=== PATIENT | female | born 2000 | race Caucasian/White ===

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

== ENCOUNTER 2021-01-20 16:02 | Emergency (ER) | payer MEDICAID, SELFPAY ==
[2021-01-20 16:03] VITALS: BP 124/83; PULSE 65; RESP 18; TEMP 36; O2SAT 97; BMI 37.3
--- NOTE | 2021-01-20 16:19 | RAD_ITS ---
STUDY: X-RAY CHEST REASON FOR EXAM: Female, 20 years old. chest pain TECHNIQUE: AP COMPARISON: None. FINDINGS: The lungs are clear and expanded. There is no demonstrated pleural abnormality. Normal size heart. Normal mediastinum and keith. Normal visualized pulmonary arteries. Normal visualized aortic arch and descending thoracic aorta. Normal visualized thoracic spine. Normal visualized ribs, clavicles, and shoulders. There is no demonstrated abnormality of the visualized soft tissue structures of the upper abdomen. RAD/Chest 1 View (Portable) IMPRESSION: Nonacute portable x-ray examination of the chest. Electronically Signed: Gilberto Patterson MD ([place]) at 16:39 EDT , Service support ,
--- NOTE | 2021-01-20 16:23 | ED.VIS.CHEST ---
HPI History of Present Illness Chief Complaint: Chest Other Informant: patient Narrative Narrative: 20-year-old patient presenting to the emergency room with bilateral rib pain. Patient states that they have gender dysphoria and has been using a very tight binder on their chest. Saturday she started having pain in the bilateral ribs and switched to a less constrictive binder. They states that they have went to her doctor and has been taking some anti-inflammatories but the pain seems to be getting worse. The patient rep[orts to me that they advised if the patient develops nausea or difficulty breathing to come to the emergency room. This morning the patient states that they felt slightly nauseous and felt that the breathing was harder. The patient denies fever cough or rash. PFSH PFS Medical History (Updated 01/20/21 @ 16:[address] Mason Shen DO) Anxiety Depression Medical History no medical history no medical history Home Medications NK 09/29/19 [History Last Taken Unknown] hydrocodone-acetaminophen 1 tab PO Q6H PRN PRN 3 Days #12 tablet 01/20/21 [Rx Last Taken Unknown] Allergy/AdvReac Type Severity Reaction Status Date / Time Penicillins AdvReac Hives Verified 01/20/21 16:03 Surgical History Hx of appendectomy Social History (Updated 01/20/21 @ 16:[address] Mason Shen DO) Smoking Status: Never smoker substance use type: does not use ROS ROS ED Constitutional Constitutional ED: Denies chills or weight loss Eyes Eyes: Denies change in vision or diplopia ENT ENT ED: Denies ear pain, rhinorrhea or sore throat Cardiovascular Cardiovascular: Reports chest pain; Denies orthopnea, palpitations or racing heartbeat Respiratory/Chest Respiratory/Chest: Reports dyspnea; Denies cough or orthopnea Gastrointestinal Gastrointestinal: Reports nausea; Denies abdominal pain, diarrhea or vomiting Genitourinary Genitourinary ED: Denies dysuria, hematuria or urinary frequency Musculoskeletal Musculoskeletal: Denies arthralgias or myalgias Integumentary Denies abscess or rash Neurologic Neurologic: Denies headache(s) or weakness Psychiatric Psychiatric: Denies anxiety, depression, suicidal ideation or suicidal thoughts Endocrine Endocrinology: Denies polydipsia, polyphagia or polyuria Allergic/Immunologic Allergic/Immunologic ED: Denies mouth swelling, tongue swelling or urticaria EXAM Physical Exam Const Vital Signs: 01/20/21 16:03 01/20/21 16:31 Temperature 96.8 F L Temperature Source Temporal Pulse Rate 65 Respiratory Rate 18 Respiratory Effort Normal Respiratory Pattern Normal Blood Pressure 124/83 H Blood Pressure Mean 96 Pulse Ox 97 Positive well nourished and well developed General Appearance ED: well developed HEENT Reports normocephalic, head/scalp atraumatic and moist mucous membranes Eyes PERRL and EOMs intact bilaterally Neck no lymphadenopathy, supple and no JVD Chest Wall Chest Narrative: Tender to palpation over the bilateral ribs right greater than left Resp normal respiratory effort and clear to auscultation bilaterally Cardio regular rate, regular rhythm and no murmurs GI normal to inspection, nondistended, normoactive bowel sounds and non-tender Palpation: soft Back/Spine no CVA tenderness and normal ROM Extremity normal to inspection General Extremety ED: Negative for edema General Extremity: Negative for edema Neuro oriented x3 and CN's II-XII intact bilaterally Sensorium / Orientation: alert Motor Exam: strength 5/5 throughout Psych mental status grossly normal Mood & Affect: Negative for depressed or tearful Skin no rashes or lesions noted and no wounds MDM MDM MDM Narrative Medical decision making narrative: Patient received 2 Switchback for pain while here. My interpretation of the single view chest x-ray is no acute process. Specifically no infiltrate or obvious rib fracture seen. The patient is PERC negative. the patient's nausea could be the anti-inflammatory that they has been taking. I can prescribe a few Switchback to have at home. Would recommend against binding until they recover. Discharge Plan Triage Chief Complaint: Chest Other ED Provider: Mason Shen Dx/Rx/DC Orders Clinical Impression: Acute chest wall pain Instructions: ED Strain Chest Wall Prescriptions: New hydrocodone-acetaminophen [hydrocodone-acetaminophen] 1 TABLET tablet 1 tab PO Q6H PRN PRN (Reason: Pain) 3 Days Qty: 12 RF: 0 No Action NK RF: 0 Primary Care Provider: Noreen Bishop NP Referrals: Noreen Bishop NP, FAMILY LITERACY COORDINATOR-C [Primary Care Provider] - 3-5 Days if not improving Disposition Disposition: Home, Self Care
[2021-01-20] MEDS: HYDROcodone Bitartrate/Apap 5/325 Tablet PO (16:29)
== END 2021-01-20 16:54 | disposition home or self-care (01) ==
LOC: ED 16:41
PROVIDERS: Emergency Provider Emergency Medicine; PCP Nurse Practitioner
DX: R07.89 Other chest pain (principal)
CPT/HCPCS: 71045; 99283

== ENCOUNTER 2021-07-02 17:55 | Emergency (ER) | payer MEDICAID, SELFPAY ==
[2021-07-02 17:56] VITALS: BP 119/83; PULSE 75; RESP 24; TEMP 36.3; O2SAT 97; O2SAT 98; BMI 37.5
--- NOTE | 2021-07-02 18:07 | EKG12_ITS ---
Test Reason : CP Blood Pressure : / mmHG Vent. Rate : 081 BPM Atrial Rate : 081 BPM P-R Int : 168 ms QRS Dur : 082 ms QT Int : 380 ms P-R-T Axes : 049 014 010 degrees QTc Int : 441 ms Normal sinus rhythm Normal ECG Confirmed by MARCELO VELEZ, EDYTA ([id number]), editorial director JOSE GARCÍA ([id number]) on 07/06/2021 9:25:14 AM Referred By: ANA CRISTINA Confirmed By:EDYTA ROBERTSON MD
--- NOTE | 2021-07-02 18:49 | ED.VIS.GI ---
HPI HPI - GI History of Present Illness Chief Complaint: Chest Pain Narrative Narrative: 21-year-old female presenting with nausea/vomiting which started about 0 900 this morning. Patient states that her last meal was chicken nuggets last evening. Patient states that she did not have any vomiting until she woke up. Patient states it does radiate from her epigastrium upward. She denies a history of acid reflux. She is not had fever or chills. She denies diarrhea. She denies any sick contacts. PFSH PFSH Medical History Anxiety Depression Home Medications hydrocodone-acetaminophen 1 tab PO Q6H PRN PRN 3 Days #12 tablet 01/20/21 [Rx Last Taken Unknown] ondansetron 4 mg PO Q8H PRN #10 tab 07/02/21 [Rx Last Taken Unknown] Allergy/AdvReac Type Severity Reaction Status Date / Time Penicillins AdvReac Hives Verified 01/20/21 16:03 Surgical History Hx of appendectomy Social History Smoking Status: Never smoker substance use type: does not use ROS ROS ED Constitutional Constitutional ED: Denies fever(s) or sweats ENT ENT ED: Denies rhinorrhea or sore throat Cardiovascular Cardiovascular: Denies chest pain Respiratory/Chest Respiratory/Chest: Denies cough or dyspnea Gastrointestinal Gastrointestinal: Reports abdominal pain, nausea and vomiting; Denies diarrhea Genitourinary Genitourinary ED: Denies dysuria or hematuria Musculoskeletal Musculoskeletal: Denies arthralgias, back pain, myalgias or neck pain Integumentary Denies rash Neurologic Neurologic: Denies headache(s) or weakness Psychiatric Psychiatric: Reports anxiety; Denies depression EXAM Physical Exam Const Vital Signs: 07/02/21 17:56 07/02/21 20:07 07/02/21 21:02 Temperature 97.3 F L Temperature Source Temporal Pulse Rate 75 88 92 Respiratory Rate 24 H 18 Blood Pressure 119/83 H 110/81 H 103/49 L Blood Pressure Mean 95 90 Pulse Ox 98 99 99 Oxygen Delivery Method Room Air Room Air Positive well nourished General Appearance ED: NAD; Negative for pallor HEENT Reports moist mucous membranes normocephalic and atraumatic Eyes PERRL General Eye ED: Negative for pale conjunctiva or scleral icterus Resp normal respiratory effort and clear to auscultation bilaterally Cardio regular rate and regular rhythm GI Palpation: soft and tender epigastric; Negative for guarding, rigid or rebound tenderness present Neuro CN's II-XII intact bilaterally Sensorium / Orientation: alert, oriented to person, oriented to place and oriented to time Psych mental status grossly normal and thought process normal Skin General Skin Exam: Negative for jaundice or pallor MDM MDM MDM Narrative Medical decision making narrative: Patient's initial reported symptom was chest pain however when I asked her to point to where her chest pain is she points to her epigastrium. She reports that she had nausea and vomiting since 9 AM this morning. She does not have anything for nausea at home. She does not have any sick contacts or viral symptoms. She denies any abdominal trauma. She does not have shortness of breath but states she is feeling a little bit anxious. She has a history of anxiety. Patient will be given Zofran and a GI cocktail to see if this helps her symptoms. Patient symptoms are not improved significantly. Patient was given morphine for pain and lab work was obtained. Patient was given 500 cc normal saline. CBC shows slight leukocytosis at 13.0 but this is likely due to demargination. CMP within normal limits. Lipase negative. Serum hCG negative. On reevaluation patient feels improved her vomiting has because she initially reported chest pain there was a protocol EKG performed which on my interpretation was a normal sinus rhythm with a ventricular rate of 81 bpm without sign of ischemic change or dysrhythmia. I do not believe she needs a cardiac work-up based on the location of her pain. Since she is feeling better I will discharge her home with Zofran. She is given return precautions. Impression: 1. Epigastric pain 2. Nausea/vomiting Lab Data Labs: Laboratory Results - last 24 hr 07/02/21 07/02/21 07/02/21 18:23 18:23 18:23 WBC 13.0 H RBC 5.10 Hgb 15.3 H Hct 43.3 MCV 84.9 MCH 30.0 MCHC 35.3 RDW Std Deviation 38.0 RDW Coeff of Malik 12.3 Plt Count 280 MPV 11.8 Immature Gran % (Auto) 0.400 Neut % (Auto) 89.9 H Lymph % (Auto) 4.3 L [place] % (Auto) 5.0 Eos % (Auto) 0.2 Baso % (Auto) 0.2 Absolute Neuts (auto) 11.7 H Absolute Lymphs (auto) 0.56 L Nucleated RBC % 0 Differential Comment SCANNED Sodium 138 Potassium 3.7 Chloride 107 Carbon Dioxide 22.0 Anion Gap 9 BUN 10 Creatinine 0.96 Estim Creat Clear Calc 84.11 Est GFR (MDRD) Af Amer 95 Est GFR (MDRD) Non-Af 79 BUN/Creatinine Ratio 10.4 Glucose 118 H Calcium 9.2 Total Bilirubin 0.80 AST 21 ALT 50 Alkaline Phosphatase 79 Total Protein 8.4 H Albumin 4.1 Globulin 4.3 H Albumin/Globulin Ratio 1.0 Lipase 74 Serum , Qual NEGATIVE Discharge Plan Triage Chief Complaint: Chest Pain ED Provider: Kannan Vann Dx/Rx/DC Orders Instructions: ED Gastroenteritis, Viral (Adult), ED Epigastric Pain Uncertain Cause Prescriptions: New ondansetron 4 mg tablet,disintegrating 4 mg PO Q8H PRN (Reason: nausea and vomiting) Qty: 10 RF: 0 No Action hydrocodone-acetaminophen [hydrocodone-acetaminophen] 1 TABLET tablet 1 tab PO Q6H PRN PRN (Reason: Pain) 3 Days Qty: 12 RF: 0 Primary Care Provider: Noreen Bishop NP Referrals: Noreen Bishop NP, [employer] [Primary Care Provider] - Disposition Disposition: Home, Self Care
[2021-07-02] MEDS: Ondansetron ODT 4 MG Tablet PO (19:06)
[2021-07-02] MEDS: Mag Hydrox/Al Hydrox/Simeth 30 ML UDC PO (19:06)
[2021-07-02] MEDS: Morphine 4 MG/ML Syringe IV (20:04)
[2021-07-02 20:06] LABS: Absolute Lymphocyte Count 0.56 X10^3/uL (0.83-4.51); Absolute Neutrophil Count 11.7 X10^3/uL (2.0-7.7); Basophil# 0.03 X10^3/uL; Basophil% 0.2 % (0-1); Eosinophil# 0.03 X10^3/uL; Eosinophils% 0.2 % (0-5); Hematocrit 43.3 % (37-47); Hemoglobin 15.3 g/dL (12.0-15.0); Lymphocyte # 0.56 X10^3/ul (0.83-4.51); Lymphocyte % 4.3 % (19-41); Mean Corp Hgb Conc 35.3 g/dL (32-36); Mean Corpuscular Volume 84.9 fL (81-99); Mean Platelet Vol. 11.8 fl (6.2-12.0); Monocyte# 0.65 X10^3/uL; NRBC Flagged by Analyzer 0 % (0-5); Neutrophil % 89.9 % (47-70); POSITIVE DIFFERENTIAL YES; Platelet Count 280 K/mm3 (150-450); RBC Distribution Width CV 12.3 % (11.6-14.6)
[2021-07-02 20:07] VITALS: BP 110/81; PULSE 88; RESP 18; O2SAT 99
[2021-07-02 20:09] LABS: Differential Indicated SCAN CRITERIA MET
[2021-07-02] MEDS: Ondansetron 4 MG/2 ML Vial IV (20:11)
[2021-07-02 20:18] LABS: Internal QC Validated? YES +Cl - CLEAR BKGD; Pregnancy, Serum, hCG Quali. NEGATIVE Negative
[2021-07-02 20:24] LABS: AST(SGOT) 21 U/L (15-37); Alanine Aminotransfer ALT/SGPT 50 U/L (13-56); Albumin, Serum 4.1 g/dL (3.2-5.0); Alkaline Phosphatase 79 U/L (45-117); Anion Gap 9 (5-15); BUN 10 mg/dL (7-18); BUN/Creat Ratio 10.4 RATIO (10-20); Calcium,Total 9.2 mg/dL (8.5-10.1); Chloride 107 mmol/L (98-107); Creatinine, Serum 0.96 mg/dL (0.55-1.02); EST Glomerular Filtration Rate 79 mL/min (>60); Est Glom Filt Rate - Afr Amer 95 mL/min (>60); Estimated Creatinine Clearance 84.11 ml/min; Globulin 4.3 g/dL (2.2-4.2); Glucose 118 mg/dL (74-106); Lipase 74 U/L (73-393); Potassium 3.7 mmol/L (3.5-5.1); Protein, Total 8.4 g/dL (6.4-8.2); Sodium Level 138 mmol/L (136-145)
[2021-07-02 21:02] VITALS: BP 103/49; PULSE 92; O2SAT 99
[2021-07-02 21:04] LABS: Differential Comment SCANNED
== END 2021-07-02 21:31 | disposition home or self-care (01) ==
PROVIDERS: Emergency Provider Student in an Organized Health Care Education/Training Program; PCP Nurse Practitioner; Visit Provider Student in an Organized Health Care Education/Training Program
DX: R10.13 Epigastric pain (principal); R11.2 Nausea with vomiting, unspecified
CPT/HCPCS: 80053; 83690; 84703; 85025; 93005; 96374; 96375; 99285; J2405

== ENCOUNTER 2024-03-03 21:51 | Emergency (ER) | payer MEDICAID, SELFPAY ==
[2024-03-03 21:52] VITALS: BP 122/64; PULSE 72; RESP 19; TEMP 36.4; O2SAT 98; BMI 33.3
--- NOTE | 2024-03-03 23:29 | EDS_ITS ---
HPI HPI - Female History of Present Illness Chief Complaint: Complaint Informant: patient Bleeding Issue: Negative for Vaginal bleeding Associated Symptoms Associated Symptoms: Positive for Dysuria, Frequency and Urgency Last known menstrual period: Last 2 weeks. Sexually: Positive for Inactive Narrative Narrative: 23-year-old female past medical history of anemia. Prior appendectomy and C- section. States she has had dysuria for 1 to 2 weeks. Now having urinary urgency and loose stools and fecal urgency. Denies any back pain. No leg weakness or numbness. No prior back surgery. Prior similar symptoms: Yes Recent Illness/Hospitalization: No PFSH PFSH Medical History Depression Anxiety Home Medications ?Medication ?Instructions ?Recorded ?Last Taken ?Type hydrocodone-acetaminophen 5-325mg 1 tab PO Q6H PRN PRN Pain 3 days 01/20/21 Unknown Rx 5mg-325mg #12 TABLETS ondansetron 4 mg disintegrating 4 mg PO Q8H PRN nausea and 07/02/21 Unknown Rx tablet vomiting #10 tabs Surgical History Hx of appendectomy Social History Smoking Status: Never smoker substance use type: does not use ROS ROS ED ROS Narrative Dysuria. Urinary frequency. Constitutional Constitutional ED: Denies chills or fever(s) Eyes Eyes: Denies blurry vision ENT ENT ED: Denies ear pain Cardiovascular Cardiovascular: Denies chest pain Respiratory/Chest Respiratory/Chest: Denies cough or dyspnea Gastrointestinal Gastrointestinal: Reports diarrhea; Denies abdominal pain, constipation, melena, nausea or vomiting Genitourinary Genitourinary ED: Reports dysuria and urinary frequency Musculoskeletal Musculoskeletal: Denies arthralgias Integumentary Denies abscess Neurologic Neurologic: Denies headache(s) Psychiatric Psychiatric: Denies anxiety Endocrine Endocrinology: Denies heat intolerance Hematologic/Lymphatic Hematologic/Lymphatic: Denies easy bleeding Allergic/Immunologic Allergic/Immunologic ED: Denies mouth swelling EXAM Physical Exam Narrative Exam Narrative: Well-appearing 23-year-old female. Vital signs stable afebrile. Other female present in the room with her. No distress. H EENT exam unremarkable. Moist mucous membranes. Lungs clear to auscultation bilaterally. Heart regular rate and rhythm rate about 70 no murmur. Chest wall ribs nontender. Abdomen soft nontender. Nondistended. Normal bowel sounds no peritoneal signs. Back nontender. Moving all 4 extremities. 5/5 territory representative strength. Dorsi plantarflexion intact. No cauda equina. No saddle anesthesia. Normal flexion extension. Able to lift either leg off the bed. Neurologic exam normal. Awake alert. No focal motor or sensory deficits. Const Vital Signs: 03/03/24 21:52 Temperature 97.6 F L Temperature Source Temporal Pulse Rate 72 Respiratory Rate 19 H Blood Pressure 122/64 H Blood Pressure Mean 83 Pulse Ox 98 Oxygen Delivery Method Room Air Positive well nourished and well developed; Negative for cachectic, contractures or unkempt General Appearance ED: well developed and NAD; Negative for unkempt, cachectic, contractures or pallor Nutritional Appearance: Negative for cachectic HEENT Reports moist mucous membranes Negative for trauma or tenderness Eyes PERRL and EOMs intact bilaterally General Eye ED: Negative for pale conjunctiva or scleral icterus Neck no lymphadenopathy, supple and no JVD Thyroid: Negative for tender Lymph Lymphatic: Negative for other Chest Wall inspection of chest normal and palpation of chest normal Resp normal respiratory effort and clear to auscultation bilaterally Effort and Inspection: Negative for pain with movement Auscultation: Negative for rales, rhonchi, wheezes or diminished lung sounds Cardio regular rate, regular rhythm, S1 normal heart sound, no murmurs and no JVD Rate: Negative for bradycardia or tachycardic Rhythm: Negative for abnormal rhythm GI normal to inspection, nondistended, normoactive bowel sounds, soft to palpation, non-tender, non-distended and no masses Auscultation: normoactive bowel sounds Palpation: Negative for tender, guarding, rigid or mass Back/Spine no CVA tenderness General Back: Negative for CVA tenderness Cervical Spine: Negative for cervical spine tenderness Thoracic Spine / Upper Back: Negative for thoracic spinal tenderness Lumbar Spine / Lower Back: Negative for lumbar spinal tenderness Sacrum: Negative for other Extremity normal to inspection and full ROM General Extremety ED: Negative for edema or tenderness General Extremity: Negative for edema Neuro oriented x3 and CN's II-XII intact bilaterally Sensorium / Orientation: alert, oriented to person, oriented to place and oriented to time; Negative for confused, lethargic or stuporous Motor Exam: strength 5/5 throughout Psych mental status grossly normal Appearance: Negative for unkempt Attitude: No agitated Speech: No other Mood & Affect: Negative for depressed, anxious or tearful Skin no rashes or lesions noted and no wounds General Skin Exam: Negative for jaundice or pallor Rashes: No rashes noted Trauma: Negative for other MDM MDM MDM Narrative Medical decision making narrative: 23-year-old female dysuria for 1 to 2 weeks with urinary frequency now. C onsider UTI. Exam benign. UA pending. She has normal strength in her lower extremities and sensation. She has no back pain. Repeat exam at 12:25 AM patient doing well. We went over her urine. It was clean. A culture was sent. She be discharged home with outpatient follow-up. History & Record Review Discussion w/independent historian: Patient and Family Additional record(s) reviewed:: Prior inpatient record, Prior outpatient record, Prior ED visit and Prior labs Lab Data Attestation: I reviewed the patient's lab results. Lab results narrative: Urinalysis shows no acute abnormality. 0 red cells. 0 white cells. 2+ bacteria. No nitrates. Culture sent. Labs: Laboratory Results - last 24 hr 03/03/24 23:50 Urine Color Yellow Urine Clarity Sl. Cloudy Urine pH 7.0 Ur Specific [place] 1.010 Urine Protein 15 H Urine Glucose (UA) Normal Urine Ketones Negative Urine Occult Blood 10 H Urine Nitrite Negative Urine Bilirubin Negative Urine Urobilinogen Normal Ur Leukocyte Esterase 25 H Urine RBC 0 SEEN Urine WBC 0 SEEN Ur Squamous Epith Cells 0-5 SEEN Urine Bacteria 2+ Urine Mucus 0 SEEN Discharge Plan Triage Chief Complaint: Complaint ED Provider: Brian Hart Dx/Rx/DC Orders Prescriptions: No Action hydrocodone-acetaminophen [hydrocodone-acetaminophen] 1 TABLET tablet 1 tab PO Q6H PRN PRN (Reason: Pain) 3 Days Qty: 12 0RF ondansetron 4 mg tablet,disintegrating 4 mg PO Q8H PRN (Reason: nausea and vomiting) Qty: 10 0RF Primary Care Provider: Care Physician,No Primary Referrals: Noreen Bishop [employer]TAIN, [employer] [employer] [Non-Staff] - Print Language: Mohawk
[2024-03-03 23:53] LABS: Mucous, Urine 0 SEEN /hpf (<or=2+); Red Blood Cells-Urine 0 SEEN /hpf (0-5); White Blood Cells 0 SEEN /hpf (0-5)
[2024-03-03 23:55] LABS: Color, Urine Yellow (Yellow); Glucose, Dipstick Normal (Normal); Ketone-Dipstick Negative (Negative); Leukocyte Esterase-Dipstick 25 /ul (Negative); Nitrite-Dipstick Negative (Negative); Occult Blood-Urine 10 /ul (Negative); Protein-Dipstick 15 mg/dl (Negative); Urine Bilirubin Dipstick Negative (Negative); Urine Clarity Sl. Cloudy (Clear); Urine Urobilinogen Normal (Normal)
[2024-03-04 00:20] LABS: Bacteria 2+ /hpf (None Seen); Squamous Epithelial Cells - UA 0-5 SEEN /hpf (5-10)
== END 2024-03-04 00:44 | disposition home or self-care (01) ==
PROVIDERS: Emergency Provider Emergency Medicine; Visit Provider Emergency Medicine
DX: R30.0 Dysuria (principal); R35.0 Frequency of micturition; R39.15 Urgency of urination; R19.7 Diarrhea, unspecified; Z90.49 Acquired absence of other specified parts of digestive tract
CPT/HCPCS: 81001; 87086; 87088; 99282